=== PATIENT | male | born 1975 | race Caucasian/White ===

== ENCOUNTER 2016-05-13 22:01 | Emergency (ER) | payer OTHER ==
[2016-05-13 22:25] VITALS: BP 130/83; PULSE 93; TEMP 98.5; BMI 24.3
[2016-05-13] MEDS ORDERED: RABIES IMMUNE GLOBULIN 300 UNITS/2 ML VIAL IM ONE (23:26)
[2016-05-13] MEDS ORDERED: RABIES VACCINE (PCEC)/PF 2.5 UNIT/VIAL IM ONE (23:26)
--- NOTE | 2016-05-14 01:00 | PDOC ---
History of Present Illness - General Chief Complaint: Bite Stated Complaint: YPD/BITE Time Seen by Provider: 05/13/16 22:36 History Source: Patient Exam Limitations: No Limitations - History of Present Illness Initial Comments: 05/14/16 00:55 41yo Male patient presents to ED c/o dog bite (Sundya Whitt). 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 Patient states animal has no paper indicating vaccination and is concerned with rabies. Reports tetanus status unknown. Patient states he was bitten on his LLE ([place]). He denies any other complaints at this time. Timing/Duration: reports: just prior to arrival Severity: Yes: mild Location: reports: extremities Past History - Travel Traveled outside of the country in the last 30 days: No Close contact w/someone who was outside of country & ill: No - Past Medical History Allergies/Adverse Reactions: Allergies Allergy/AdvReac Type Severity Reaction Status Date / Time No Known Allergies Allergy Verified 05/13/16 22:21 Home Medications: Ambulatory Orders Amoxicillin/Potassium Clav [Augmentin 875-125 Tablet] 1 each PO Q12H #20 tablet 05/14/16 - Immunization History Td Vaccination: Yes TDAP Vaccination: Yes Immunization Up to Date: Yes - Psycho/Social/Smoking Cessation Hx Anxiety: No Suicidal Ideation: No Smoking Status: Yes Smoking History: Current every day smoker Years of Tobacco Use: 15 Number of Cigarettes Smoked Daily: 5 Information on smoking cessation initiated: No Hx Alcohol Use: No Drug/Substance Use Hx: No Review of Systems - Review of Systems Able to Perform ROS?: Yes Is the patient limited Ugandan proficient: No Constitutional: No: Fever Respiratory: No: Shortness of Breath, Wheezing Cardiac (ROS): No: Chest Pain Musculoskeletal: No: Joint Pain, Muscle Pain, Muscle Weakness Integumentary: Yes: Erythema, Other (Animal Bite Jd to LLE). No: Rash All Other Systems: Reviewed and Negative *Physical Exam - Vital Signs Last Vital Signs Temp Pulse Resp BP Pulse Ox 98.5 F 93 H 14 130/83 97 05/13/16 22:21 05/13/16 22:21 05/13/16 22:21 05/13/16 22:21 05/13/16 22:21 - Physical Exam General Appearance: Yes: Nourished, Appropriately Dressed. No: Apparent Distress, Mild Distress, Moderate Distress, Severe Distress Respiratory/Chest: positive: Lungs Clear, Normal Breath Sounds. negative: Respiratory Distress, Accessory Muscle Use, Labored Respiration, Rapid RR Cardiovascular: positive: Regular Rhythm, Regular Rate. negative: Edema, JVD, Murmur Lymphatic: negative: Adenopathy Musculoskeletal: positive: Normal Inspection. negative: CVA Tenderness, Decreased Range of Motion, Vertebral Tenderness Extremity: positive: Normal Capillary Refill, Normal Inspection, Normal Range of Motion, Tender (LLE), Swelling (mild) Integumentary: positive: Normal Color, Dry, Warm, Erythema, Swelling, Bruising Neurologic: positive: exchange engineer II-XII NML intact, Fully Oriented, Alert, Normal Mood/ Affect, Normal Response, Motor Strength 5/5 *DC/Admit/Observation/Transfer Diagnosis at time of Disposition: Bite by animal - Discharge Dispostion Disposition: HOME Condition at time of disposition: Stable Admit: No - Prescriptions Prescriptions: Amoxicillin/Potassium Clav [Augmentin 875-125 Tablet] 1 each PO Q12H #20 tablet - Patient Instructions Printed Discharge Instructions: DI for Animal Bites, How to Care for a Wild Animal Bite Additional Instructions: FOLLOW INSTRUCTION REGARDING CONTINUATION OF VACCINATION DAY 3. TAKE MEDICATION PRESCRIBED. MOTRIN OR TYLENOL FOR PAIN NEEDED. Print Language: FAROESE - Post Discharge Activity Work/School Note: Back to Work
[2016-05-14] MEDS ORDERED: AMOX TR/POT CLAV 875MG/125MG TABLETS (FP) PO ONE (01:02)
[2016-05-14] MEDS ORDERED: TETANUS AND DIPHTHERIA TOXOID 0.5 ML DISP.SYRIN IM ONE (01:02)
[2016-05-14] MEDS ORDERED: AMOX TR/POT CLAV 875MG/125MG TABLETS (FP) ONE (01:17)
== END 2016-05-14 01:51 | disposition home or self-care (01) ==
LOC: JER 22:01
PROC: 3E0234Z Introduction of Serum, Toxoid and Vaccine into Muscle, Percutaneous Approach (ICD-10-PCS; principal; 2016-05-13)
PROC: 3E0234Z Introduction of Serum, Toxoid and Vaccine into Muscle, Percutaneous Approach (ICD-10-PCS; 2016-05-13)
PROC: 3E0234Z Introduction of Serum, Toxoid and Vaccine into Muscle, Percutaneous Approach (ICD-10-PCS; 2016-05-13)
DX: S81.852A Open bite, left lower leg, initial encounter (principal); W54.0XXA Bitten by dog, initial encounter; Y92.098 Other place in other non-institutional residence as the place of occurrence of the external cause; Y93.89 Activity, other specified; Y99.0 Civilian activity done for income or pay
CPT/HCPCS: 90375; 90675; 99282-25

== ENCOUNTER 2018-04-28 16:46 | Emergency (ER) | payer OTHER ==
--- NOTE | 2018-04-28 16:56 | PDOC ---
Rapid Medical Evaluation Time Seen by Provider: 04/28/18 16:54 Medical Evaluation: Allergies Allergy/AdvReac Type Severity Reaction Status Date / Time No Known Allergies Allergy Verified 05/13/16 22:21 04/28/18 16:55 I have performed a brief in-person evaluation of this patient. The patient presents with a chief complaint of scrapes to left hand. States hand got caught in handcuffs while arresting a perp. States burning at site Pertinent physical exam findings NAD even and labored breathing left hand with abrasions to dorsal hand I have ordered the following The patient will proceed to the ED for further evaluation.
[2018-04-28 16:57] VITALS: BP 125/93; PULSE 99; TEMP 98.5; BMI 24.3
--- NOTE | 2018-04-28 17:23 | PDOC ---
History of Present Illness - General Chief Complaint: Injury Stated Complaint: INJURY TO LEFT HAND Time Seen by Provider: 04/28/18 16:54 History Source: Patient Exam Limitations: No Limitations - History of Present Illness Occurred: reports: just prior to arrival Upper Extremity Pain Location: left: 2nd finger, 3rd finger, 4th finger Method of Injury: reports: other (caught in handcuff) Modifying Factors: improves with: None Extremity Pain Location - Extremity Pain Location Extremity Pain Locations: left: 2nd finger, 3rd finger, 4th finger Past History - Travel Traveled outside of the country in the last 30 days: No - Past Medical History Allergies/Adverse Reactions: Allergies Allergy/AdvReac Type Severity Reaction Status Date / Time No Known Allergies Allergy Verified 04/28/18 16:55 Home Medications: Ambulatory Orders Amoxicillin/Potassium Clav [Augmentin 875-125 Tablet] 1 each PO Q12H #20 tablet 05/14/16 COPD: No - Immunization History Td Vaccination: Yes TDAP Vaccination: Yes Immunization Up to Date: Yes - Suicide/Smoking/Psychosocial Hx Smoking Status: Yes Smoking History: Current every day smoker Years of Tobacco Use: 15 Number of Cigarettes Smoked Daily: 5 Information on smoking cessation initiated: No Hx Alcohol Use: No Drug/Substance Use Hx: No Review of Systems - Review of Systems Able to Perform ROS?: Yes Is the patient limited Bruneian proficient: No Constitutional: No: Chills, Fever, Weakness HEENTM: No: Nose Congestion, Nose Bleeding, Hearing Loss, Throat Pain Respiratory: No: Cough, Hemoptysis Cardiac (ROS): No: Chest Pain, Lightheadedness, Palpitations Musculoskeletal: No: Back Pain, Neck Pain Integumentary: Yes: Other (injury to left hand by handcuff) *Physical Exam - Vital Signs Last Vital Signs Temp Pulse Resp BP Pulse Ox 98.5 F 99 H 17 125/93 100 04/28/18 16:55 04/28/18 16:55 04/28/18 16:55 04/28/18 16:55 04/28/18 16:55 - Physical Exam General Appearance: Yes: Nourished, Appropriately Dressed HEENT: positive: TANNA Neck: positive: Supple Respiratory/Chest: positive: Lungs Clear Cardiovascular: positive: Regular Rhythm, Regular Rate, S1, S2 Extremity: positive: Normal Capillary Refill Integumentary: positive: Other (+abrasions to left hand ) Neurologic: positive: Fully Oriented, Alert, Motor Strength 5/5 Moderate Sedation - Procedure Monitoring Vital Signs: Procedure Monitoring Vital Signs Temperature 98.5 F 04/28/18 16:55 Pulse Rate 99 H 04/28/18 16:55 Respiratory Rate 17 04/28/18 16:55 Blood Pressure 125/93 04/28/18 16:55 O2 Sat by Pulse Oximetry (%) 100 04/28/18 16:55 Medical Decision Making - Medical Decision Making 04/28/18 17:26 43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
== END 2018-04-28 17:46 | disposition home or self-care (01) ==
LOC: JERFT 16:46
DX: S60.512A Abrasion of left hand, initial encounter (principal); S60.418A Abrasion of other finger, initial encounter; W23.0XXA Caught, crushed, jammed, or pinched between moving objects, initial encounter; Y35.891A Legal intervention involving other specified means, law enforcement official injured, initial encounter; Y93.89 Activity, other specified; Y92.89 Other specified places as the place of occurrence of the external cause; Y99.0 Civilian activity done for income or pay
CPT/HCPCS: 99281-25

== ENCOUNTER 2018-08-04 18:57 | Emergency (ER) | payer OTHER | END 2018-08-04 20:15 | disposition home or self-care (01) | LOC: JERFT 18:57 ==

== ENCOUNTER 2018-11-11 20:04 | Emergency (ER) | payer BC, OTHER ==
[2018-11-11 20:07] VITALS: BMI 24.3
--- NOTE | 2018-11-11 21:25 | PDOC ---
History of Present Illness - General Chief Complaint: Chest Pain Stated Complaint: CHEST PAIN Time Seen by Provider: 11/11/18 20:09 - History of Present Illness Initial Comments: This 43-year-old man without significant past medical history presents with several week history of intermittent anterior chest discomfort, lasting minutes long and not related to exertion/position/deep breathing. Over the last few days, the pain has been somewhat more severe than usual. He denies shortness of breath, nausea, diaphoresis. He states that his heartbeat has been rapid for quite a while and has not had any episodes of very fast pulse or irregular pulse. He has no previous history of any cardiac disease. He smokes one pack of cigarettes a day for the last 10 years. He denies history of hypertension/ diabetes mellitus/hyperlipidemia. No history of early cardiac disease in his family. 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 Patient has a history of epigastric discomfort and has had upper endoscopy in the past and diagnosis of GERD (not treated recently). He states he has not been eating well recently secondary to his "stress" and has lost weight ( approximately "a jeans size") Cardiac risk factors: Positive smoking On no daily medications No known ALLERGIES Past History - Past Medical History Allergies/Adverse Reactions: Allergies Allergy/AdvReac Type Severity Reaction Status Date / Time No Known Allergies Allergy Verified 11/11/18 20:05 Home Medications: Ambulatory Orders Pantoprazole Sodium [Protonix -] 40 mg PO DAILY #14 tablet.ec 11/11/18 COPD: No - Immunization History Td Vaccination: Yes TDAP Vaccination: Yes Immunization Up to Date: Yes - Suicide/Smoking/Psychosocial Hx Smoking Status: Yes Smoking History: Current every day smoker Years of Tobacco Use: 15 Have you smoked in the past 12 months: No Number of Cigarettes Smoked Daily: 20 Information on smoking cessation initiated: Yes Hx Alcohol Use: Yes (OCASIONAL) Drug/Substance Use Hx: No Review of Systems - Review of Systems Able to Perform ROS?: Yes Comments:: 12 point review of systems is negative except for what is noted in the history of present illness *Physical Exam - Vital Signs Last Vital Signs Temp Pulse Resp BP Pulse Ox 98.4 F 91 H 18 127/94 99 09/24/19 22:25 11/11/18 22:25 11/11/18 20:05 11/11/18 22:25 11/11/18 22:25 - Physical Exam Comments: GENERAL: Adult male, alert and oriented 3, in no acute distress HEAD: Normal with no signs of trauma. EYES: PERRLA, EOMI, sclera anicteric, conjunctiva clear. ENT: Ears normal, nares patent, oropharynx clear without exudates. Moist mucous membranes. NECK: Normal range of motion, supple without lymphadenopathy, JVD, or masses. No thyromegaly evident LUNGS: Breath sounds equal, clear to auscultation bilaterally. No wheezes, and no crackles. HEART:Regular rate and rhythm, normal S1 and S2 without murmur, rub or gallop. No chest wall tenderness ABDOMEN:.normal bowel sounds No guarding,tenderness or rebound.No masses No distention. EXTREMITIES: Normal range of motion, no edema. No clubbing or cyanosis. No erythema, or tenderness. NEUROLOGICAL: Cranial nerves II through XII grossly intact. Normal speech. No focal neurological deficits. Twelve-lead electrocardiogram is performed and interpreted by me: Sinus tachycardia 107/minute. [place], intervals and waveforms are all normal. No evidence of acute ST or T-wave abnormalities. No evidence of acute cardiac arrhythmia. Heart Score/ECG Review - History History: Slightly suspicious - Electrocardiogram EKG: Normal - Age Age: </= 45 - Risk Factors Risk Factors Heart Score: Yes Smoking History Based on the list above the patient has:: 1-2 risk factors - Troponin Troponin: </= normal limit - Score Heart Score - Total: 1 ED Treatment Course - LABORATORY CBC & Chemistry Diagram: 11/11/18 21:50 11/11/18 21:50 - ADDITIONAL ORDERS Additional order review: Laboratory Results 11/11/18 11/11/18 21:50 21:50 Sodium 139 Potassium 4.1 Chloride 106 Carbon Dioxide 28 Anion Gap 5 L BUN 13.0 Creatinine 1.2 Est GFR (CKD-EPI)AfAm 86.53 Est GFR (CKD-EPI)NonAf 74.66 Random Glucose 102 Calcium 9.5 Total Bilirubin 2.0 H AST 27 ALT 22 Alkaline Phosphatase 89 Creatine Kinase 59 Troponin I < 0.03 Total Protein 6.9 Albumin 4.1 TSH 1.10 11/11/18 21:50 RBC 4.54 MCV 94.2 MCHC 32.8 RDW 13.2 MPV 8.8 Neutrophils % 82.4 Lymphocytes % 11.9 Monocytes % 4.7 Eosinophils % 0.4 Basophils % 0.6 - Medications Given in the ED: ED Medications Discontinued Medications Generic Name Dose Route Start Last Admin Trade Name Lili PRN Reason Stop Dose Admin Pantoprazole Sodium 40 mg 11/11/18 22:53 11/11/18 23:03 Protonix - PO 11/11/18 22:54 40 mg ONCE ONE Administration Medical Decision Making - Medical Decision Making This 43-year-old man with no previous medical history but admits to significant increase in stress in his daily life over the last 3 months presents with intermittent chest discomfort for the last month. He has no known triggers to the pain which lasts minutes and resolves spontaneously. He has no significant associated symptoms with this chest discomfort. Exam as noted. Twelve-lead electrocardiogram shows mild tachycardia but otherwise is non- ischemic CBC/chemistry profile/troponin/TSH levels were drawn. Laboratory evaluations are all within normal limits. Heart score is 1 Results discussed with the patient. Although there is no strong evidence that the patient's discomfort is cardiac in origin, he needs full evaluation by his physician. The patient states that he currently has no physician but relies on urgent care centers as needed for symptoms. Patient is urged to follow-up with a steady health care provider . He will be given referral information for physician within the [facility] system. Meanwhile, since he has been diagnosed with GERD in the past, acid reducing medication may be helpful in decreasing his discomfort since it is possible that some of his symptoms are related to esophageal irritation. Protonix 40 mg will be given now and prescription for the daily dose of this medication for 2 weeks will be sent to his pharmacy. He is also urged to stop smoking; a personal physician would be helpful with this endeavor He should return to the ER if he has persistent chest pain, shortness of breath , palpitations, lightheadedness. *DC/Admit/Observation/Transfer Diagnosis at time of Disposition: Atypical chest pain - Discharge Dispostion Disposition: HOME Condition at time of disposition: Stable - Prescriptions Prescriptions: Pantoprazole Sodium [Protonix -] 40 mg PO DAILY #14 tablet.ec - Referrals Referrals: Jd Alejandro MD [Staff Physician] - 1 week - Patient Instructions Printed Discharge Instructions: DI for Atypical Chest Pain Additional Instructions: Protonix 40 mg daily for the next 2 weeks Avoid smoking as much as possible Follow-up with within the next week Return to ER if you have persistent chest pain, shortness of breath, nausea or sweating - Post Discharge Activity
[2018-11-11 22:03] LABS: BASO % 0.6 % (0-2.0); EOS % 0.4 % (0-4.5); HEMATOCRIT 42.8 % (35.4-49); LYMPH % 11.9 % (8-40); MCH 30.9 pg (25.7-33.7); MCHC 32.8 g/dl (32.0-35.9); MEAN CELL VOLUME 94.2 fl (80-96); MEAN PLT VOLUME 8.8 fl (7.5-11.1); MONO % 4.7 % (3.8-10.2); NEUT % 82.4 % (42.8-82.8); PLATELET COUNT 213 K/MM3 (134-434); RBC 4.54 M/mm3 (4.00-5.60); RDW 13.2 % (11.9-15.9); WHITE BLOOD COUNT 8.2 K/mm3 (4.0-10.8)
[2018-11-11 22:14] LABS: ALBUMIN 4.1 g/dl (3.4-5.0); CALCIUM 9.5 mg/dl (8.5-10); CREATININE 1.2 mg/dl (0.55-1.3); POTASSIUM 4.1 mmol/L (3.5-5.1); TOT PROT 6.9 g/dl (6.4-8.2)
[2018-11-11 22:33] VITALS: BP 127/94; PULSE 91; TEMP 98.4
[2018-11-11] MEDS ORDERED: PANTOPRAZOLE 40 MG TABLET (FP) PO ONE (22:53)
[2018-11-11] MEDS ORDERED: PANTOPRAZOLE 40 MG TABLET (FP) ONE (23:02)
--- NOTE | 2018-11-12 10:42 | EKG ---
Test Reason : Blood Pressure : / mmHG Vent. Rate : 107 BPM Atrial Rate : 107 BPM P-R Int : 124 ms QRS Dur : 076 ms QT Int : 338 ms P-R-T Axes : 081 082 046 degrees QTc Int : 451 ms SINUS TACHYCARDIA POSSIBLE LEFT ATRIAL ENLARGEMENT BORDERLINE ECG WHEN COMPARED WITH ECG OF 04-AUG-2018 19:01, NO SIGNIFICANT CHANGE WAS FOUND Confirmed by ANA LOTT MD ([id number]) on 11/12/2018 10:41:50 AM Referred By: DR OVALLE Confirmed By:ANA LOTT MD
== END 2018-11-11 23:09 | disposition home or self-care (01) ==
LOC: FER 20:04
DX: R07.89 Other chest pain (principal); F17.210 Nicotine dependence, cigarettes, uncomplicated
CPT/HCPCS: 36415; 80053; 82550; 84443; 84484; 85025; 93005; 99282-25

== ENCOUNTER 2018-11-30 19:10 | Emergency (ER) | payer OTHER ==
[2018-11-30 19:23] VITALS: BP 117/75; PULSE 97; TEMP 98.5; BMI 24.3
[2018-11-30] MEDS ORDERED: SULFAMETHOXAZOLE/TRIMETHOPRIM 800MG/160MG D.S. TABLET PO ONE (19:51)
[2018-11-30] MEDS ORDERED: diphenhydrAMINE HCL 25 MG CAPSULE (FP) PO ONE ×2 (19:51→19:55)
[2018-11-30] MEDS ORDERED: CEPHALEXIN MONOHYDRATE 500 MG CAPSULE (UD) PO ONE (19:51)
--- NOTE | 2018-11-30 19:52 | PDOC ---
History of Present Illness - General Chief Complaint: Redness To Affected Area Stated Complaint: BITE Time Seen by Provider: 11/30/18 19:30 History Source: Patient Exam Limitations: No Limitations Past History - Travel Traveled outside of the country in the last 30 days: No Close contact w/someone who was outside of country & ill: No - Past Medical History Allergies/Adverse Reactions: Allergies Allergy/AdvReac Type Severity Reaction Status Date / Time No Known Allergies Allergy Verified 11/30/18 19:20 Home Medications: Ambulatory Orders Cephalexin Monohydrate [Keflex -] 500 mg PO BID #14 capsule 11/30/18 Diphenhydramine HCl [Benadryl -] 25 mg PO Q8H #21 capsule 11/30/18 Sulfamethoxazole/Trimethoprim [Bactrim Ds -] 1 tab PO BID #14 tablet 11/30/18 COPD: No - Immunization History Td Vaccination: Yes TDAP Vaccination: Yes Immunization Up to Date: Yes - Psycho Social/Smoking Cessation Hx Smoking Status: Yes Smoking History: Current every day smoker Years of Tobacco Use: 15 Have you smoked in the past 12 months: No Number of Cigarettes Smoked Daily: 10 Information on smoking cessation initiated: No 'Breaking Loose' booklet given: 11/11/18 Hx Alcohol Use: Yes (OCASIONAL) Drug/Substance Use Hx: No Review of Systems - Review of Systems Able to Perform ROS?: Yes Comments:: 11/30/18 19:47 CONSTITUTIONAL: Absent: fever, chills, diaphoresis, generalized weakness, malaise, loss of appetite HEENT: Absent: rhinorrhea, nasal congestion, throat pain, throat swelling, difficulty swallowing, mouth swelling, ear pain, eye pain, visual Changes CARDIOVASCULAR: Absent: chest pain, loss of consciousness, palpitations, irregular heart rate, peripheral edema RESPIRATORY: Absent: cough, shortness of breath, dyspnea with exertion, orthopnea, wheezing, stridor, hemoptysis GASTROINTESTINAL: Absent: abdominal pain, abdominal distension, nausea, vomiting, diarrhea, constipation, melena, hematochezia GENITOURINARY: Absent: dysuria, frequency, urgency, hesitancy, hematuria, flank pain, genital pain MUSCULOSKELETAL: Absent: myalgia, arthralgia, joint swelling SKIN: Present: bug bite Absent: rash, itching, pallor HEMATOLOGIC/IMMUNOLOGIC: Absent: easy bleeding, easy bruising, lymphadenopathy, frequent infections ENDOCRINE: Absent: unexplained weight gain, unexplained weight loss, heat intolerance, cold intolerance NEUROLOGIC: Absent: headache, focal weakness or paresthesias, dizziness, unsteady gait, seizure, mental status changes, bladder or bowel incontinence PSYCHIATRIC: Absent: anxiety, depression, suicidal or homicidal ideation, hallucinations. Is the patient limited Lao proficient: No *Physical Exam - Vital Signs Last Vital Signs Temp Pulse Resp BP Pulse Ox 98.5 F 97 H 18 117/75 98 11/30/18 19:20 11/30/18 19:20 11/30/18 19:20 11/30/18 19:20 11/30/18 19:20 - Physical Exam Comments: 11/30/18 19:48 GENERAL: The patient is awake, alert, and fully oriented, in no acute distress. HEAD: Normal with no signs of trauma. EYES: Pupils equal, round and reactive to light, extraocular movements intact, sclera anicteric, conjunctiva clear. EXTREMITIES: Normal range of motion, no edema. NEUROLOGICAL: Normal speech, normal gait. PSYCH: Normal mood, normal affect. SKIN: 1cm round raised bite to the L sikhism with overlying erythema. Warm, Dry, normal turgor, no rashes noted. Medical Decision Making - Medical Decision Making 11/30/18 19:53 Patient is a 43-year-old male with no past medical history presents to the ER today for bug bite to his left sikhism. He states that he noticed it today while working. He states that it is hard and red and is gotten worse over the course of the day. He notes that it is warm to touch. He states he does have allergies to bee stings. Denies fevers, chills, pain to the area, lightheadedness dizziness, difficulty breathing and shortness of breath A/P: Cellulitis On exam patient with a bug bite to the left sikhism approximately 1 cm and firm There is some overlying cellulitis, possible erythema from allergy We will treat as a skin infection with Bactrim and Keflex. First dose given in the ER Benadryl given for possible allergic component Likely a bug bite is now cellulitic infection Patient to follow-up with primary care doctor Discharge home I discussed the physical exam findings, ancillary test results and final diagnoses with the patient. I answered all of the patient's questions. The patient was satisfied with the care received and felt comfortable with the discharge plan and treatment plan. The Patient agrees to follow up with the primary care physician/specialist within 24-72 hours. Return precautions were given. Discharge - Discharge Information Problems reviewed: Yes Clinical Impression/Diagnosis: Cellulitis Qualifiers: Site of cellulitis: face Qualified Code(s): L03.211 - Cellulitis of face Condition: Stable Disposition: HOME - Admission No - Follow up/Referral Referrals: Monty Garibay MD [Staff Physician] - - Patient Discharge Instructions Patient Printed Discharge Instructions: DI for Cellulitis -- Adult Additional Instructions: You have cellulitis. This is a skin infection. Please take the Bactrim and Keflex twice a day for one week. Please take all the antibiotics even if you feel better. You may use warm water soaks to the area. Please do this approximately 4-5 times a day. Please avoid shaving the skin around the area of redness. You may take Tylenol or Motrin as needed for pain. Please follow up with your primary care doctor in 1 week. Return to the emergency department if you have worsening redness, fevers, increasing pain, or have any changes in your symptoms. - Post Discharge Activity
[2018-11-30] MEDS ORDERED: CEPHALEXIN MONOHYDRATE 500 MG CAPSULE (UD) ONE (19:53)
[2018-11-30] MEDS ORDERED: SULFAMETHOXAZOLE/TRIMETHOPRIM 800MG/160MG D.S. TABLET ONE (19:54)
== END 2018-11-30 20:01 | disposition home or self-care (01) ==
LOC: JERFT 19:10
DX: S00.86XA Insect bite (nonvenomous) of other part of head, initial encounter (principal); L03.211 Cellulitis of face; W57.XXXA Bitten or stung by nonvenomous insect and other nonvenomous arthropods, initial encounter; Y93.89 Activity, other specified; Y92.69 Other specified industrial and construction area as the place of occurrence of the external cause; Y99.0 Civilian activity done for income or pay
CPT/HCPCS: 99281-25

== ENCOUNTER 2021-10-30 19:27 | Emergency (ER) | payer OTHER ==
[2021-10-30 19:33] VITALS: BP 145/100; PULSE 104; RESP 20; TEMP 98; BMI 24.3
== END 2021-10-30 20:37 | disposition home or self-care (01) ==
LOC: FER 19:27
DX: S69.91XA Unspecified injury of right wrist, hand and finger(s), initial encounter (principal); W23.0XXA Caught, crushed, jammed, or pinched between moving objects, initial encounter
CPT/HCPCS: 73130-TC-RT-FY; 99283-25

== ENCOUNTER 2023-05-18 00:17 | Emergency (ER) | payer OTHER ==
[2023-05-18 00:25] VITALS: BP 124/90; PULSE 101; RESP 17; TEMP 98.8; BMI 24.3
== END 2023-05-18 01:07 | disposition home or self-care (01) ==
LOC: FER 00:17
DX: S63.501A Unspecified sprain of right wrist, initial encounter (principal); X50.1XXA Overexertion from prolonged static or awkward postures, initial encounter
CPT/HCPCS: 99283-25

== ENCOUNTER 2023-08-12 21:34 | Emergency (ER) | payer OTHER ==
[2023-08-12 21:46] VITALS: BP 133/88; PULSE 92; RESP 16; TEMP 99.3; BMI 24.3
== END 2023-08-12 22:26 | disposition home or self-care (01) ==
LOC: FER 21:34
PROC: 0H91XZZ Drainage of Face Skin, External Approach (ICD-10-PCS; principal; 2023-08-12)
DX: L02.01 Cutaneous abscess of face (principal)
CPT/HCPCS: 99282-25